=== PATIENT | female | born 1970 | race Caucasian/White ===

== ENCOUNTER 2016-06-08 07:17 | Outpatient (CLI) | payer OTHER | END 2016-06-08 07:18 | disposition home or self-care (01) | DX: D50.9 Iron deficiency anemia, unspecified (principal); Z79.899 Other long term (current) drug therapy ==

== ENCOUNTER 2017-03-20 07:20 | Outpatient (CLI) | payer OTHER ==
[2017-03-20 12:13] LABS: BASOPHILS % (AUTO) 0.5 %; EOSINOPHILS # (AUTO) 0.2 10^3/uL (0.0-0.7); EOSINOPHILS % (AUTO) 3.2 %; HGB - HEMOGLOBIN 12.7 g/dL (12.0-16.0); LYMPHOCYTES # (AUTO) 1.5 10^3/uL (1.5-3.5); LYMPHOCYTES % (AUTO) 22.8 %; MEAN CORPUSCULAR HEMOGLOBIN 29.4 pg (27.0-31.0); MEAN CORPUSCULAR HGB CONC 33.6 g/dL (32.0-36.0); MEAN CORPUSCULAR VOLUME 87.6 fL (81.0-99.0); MEAN PLATELET VOLUME 9.6 fL (7.9-10.8); MONOCYTES # (AUTO) 0.5 10^3/uL (0.0-1.0); MONOCYTES % (AUTO) 7.5 %; NEUTROPHILS # (AUTO) 4.3 10^3/uL (1.5-6.6); PLT - PLATELET COUNT 246 10^3/uL (130-450); RED BLOOD COUNT 4.32 10^6/uL (4.20-5.40); RED CELL DISTRIBUTION WIDTH 13.3 % (12.0-15.0); WHITE BLOOD COUNT 6.4 x10^3/uL (4.8-10.8)
[2017-03-20 12:40] LABS: THYROID STIMULATING HORMONE 1.96 uIU/mL (0.34-5.60)
[2017-03-20 12:42] LABS: % IRON SATURATION 19 % (20-50); ALBUMIN 3.8 g/dL (3.2-5.5); ALBUMIN/GLOBULIN RATIO 1.1 (1.0-2.2); ALKALINE PHOSPHATASE 86 IU/L (42-121); ALT ALANINE AMINOTRANSFERASE 12 IU/L (10-60); AST ASPARTATE AMINOTRANSFERASE 15 IU/L (10-42); BILIRUBIN,TOTAL 0.4 mg/dL (0.2-1.0); BUN - BLOOD UREA NITROGEN 15 mg/dL (6-20); CALCIUM 9.1 mg/dL (8.5-10.3); CARBON DIOXIDE - CO2 28 mmol/L (21-32); CHLORIDE 105 mmol/L (101-111); CHOL/HDL RATIO 3.1 (<4.4); CHOLESTEROL 164 mg/dL; CREATININE 0.6 mg/dL (0.4-1.0); GFR - MDRD 107 (>89); GLUCOSE 92 mg/dL (70-100); HDL CHOLESTEROL 53 mg/dL; IRON 68 ug/dL (28-170); LDL CHOLESTEROL,CALCULATED 91 mg/dL; LDL/HDL RATIO 1.7 (<4.4); SODIUM 138 mmol/L (135-145); TOTAL IRON BINDING CAPACITY 351 ug/dL (250-450); TOTAL PROTEIN 7.2 g/dL (6.7-8.2); TRANSFERRIN 251 mg/dL (192-382); VLDL CHOLESTEROL 20 mg/dL
[2017-03-20 12:44] LABS: FERRITIN 10.7 ng/mL (11.0-306.8)
== END 2017-03-20 07:21 | disposition home or self-care (01) ==
LOC: LAB.F 07:20
PROVIDERS: ATTEND Physician Assistant Medical
DX: Z00.00 Encounter for general adult medical examination without abnormal findings (principal); Z13.89 Encounter for screening for other disorder; E55.9 Vitamin D deficiency, unspecified; D50.9 Iron deficiency anemia, unspecified; Z51.81 Encounter for therapeutic drug level monitoring; Z79.899 Other long term (current) drug therapy
CPT/HCPCS: 36415; 80053; 80061; 82306; 82728; 83540; 83721; 84443; 84466; 85025

== ENCOUNTER 2018-04-20 15:14 | Outpatient (CLI) | payer OTHER ==
[2018-04-20 18:20] LABS: BASOPHILS % (AUTO) 0.4 %; EOSINOPHILS # (AUTO) 0.2 10^3/uL (0.0-0.7); EOSINOPHILS % (AUTO) 3.8 %; HGB - HEMOGLOBIN 13.9 g/dL (12.0-16.0); LYMPHOCYTES # (AUTO) 1.4 10^3/uL (1.5-3.5); LYMPHOCYTES % (AUTO) 27.6 %; MEAN CORPUSCULAR HEMOGLOBIN 29.2 pg (27.0-31.0); MEAN CORPUSCULAR HGB CONC 32.7 g/dL (32.0-36.0); MEAN CORPUSCULAR VOLUME 89.2 fL (81.0-99.0); MONOCYTES # (AUTO) 0.4 10^3/uL (0.0-1.0); MONOCYTES % (AUTO) 7.9 %; NEUTROPHILS # (AUTO) 3.1 10^3/uL (1.5-6.6); NEUTROPHILS % (AUTO) 60.3 %; PLT - PLATELET COUNT 247 10^3/uL (130-450); RED BLOOD COUNT 4.76 10^6/uL (4.20-5.40); RED CELL DISTRIBUTION WIDTH 13.6 % (12.0-15.0); WHITE BLOOD COUNT 5.2 x10^3/uL (4.8-10.8)
[2018-04-20 18:48] LABS: ALBUMIN 3.8 g/dL (3.2-5.5); BILIRUBIN,TOTAL 0.6 mg/dL (0.2-1.0); CREATININE 0.7 mg/dL (0.4-1.0); TOTAL PROTEIN 7.7 g/dL (6.7-8.2)
== END 2018-04-20 15:15 | disposition home or self-care (01) ==
LOC: LAB.F 15:14
PROVIDERS: ATTEND Physician Assistant Medical
DX: Z51.81 Encounter for therapeutic drug level monitoring (principal)
CPT/HCPCS: 36415; 80053; 85025

== ENCOUNTER 2018-06-04 15:31 | Outpatient (CLI) | payer OTHER ==
[2018-06-04 17:40] LABS: ALBUMIN 3.8 g/dL (3.2-5.5); BILIRUBIN,TOTAL 0.5 mg/dL (0.2-1.0); CREATININE 0.6 mg/dL (0.4-1.0); TOTAL PROTEIN 7.7 g/dL (6.7-8.2)
== END 2018-06-04 15:32 | disposition home or self-care (01) ==
LOC: LAB.F 15:31
PROVIDERS: ATTEND Physician Assistant Medical
DX: E87.6 Hypokalemia (principal)
CPT/HCPCS: 36415; 80053

== ENCOUNTER 2018-06-06 08:02 | Outpatient (CLI) | payer OTHER ==
[2018-06-06 18:15] LABS: MAGNESIUM 2.1 mg/dL (1.7-2.8); PHOSPHORUS 2.7 mg/dL (2.5-4.6)
[2018-06-06 18:31] LABS: THYROID STIMULATING HORMONE 1.46 uIU/mL (0.34-5.60)
[2018-06-06 18:37] LABS: FERRITIN 7.9 ng/mL (11.0-306.8)
== END 2018-06-06 08:03 | disposition home or self-care (01) ==
LOC: LAB.F 08:02
PROVIDERS: ATTEND Physician Assistant Medical
DX: I49.3 Ventricular premature depolarization (principal); D50.9 Iron deficiency anemia, unspecified
CPT/HCPCS: 36415; 82728; 83735; 84100; 84443

== ENCOUNTER 2018-07-02 16:01 | Outpatient (CLI) | payer OTHER ==
--- NOTE | 2018-07-03 10:27 | Mammography Report ---
Reason: SCREENING MAMMO Procedure Date: 07/02/2018 Accession Number: [id number] / [id number] Procedure: [facility] - Screening Mammo w/Jc CPT Code: FULL RESULT: EXAM: Screening Mammo w/Jc DATE: 07/02/2018 5:01 PM CLINICAL HISTORY: Screening examination. TECHNIQUE: (B) - Bilateral CC, laterally exaggerated CC, MLO views were obtained. COMPARISON: 03/17/2008 and 03/05/2008. PARENCHYMAL PATTERN: (D) - The breast(s) demonstrate(s) heterogeneously dense fibroglandular parenchyma. FINDINGS: Compared to 2008, breast density has decreased and innumerable bilateral nodules and masses are now seen which are predominantly hypodense and well-circumscribed, without associated calcifications. While both the interval evolution and appearance are compatible with a polycystic pattern, this requires additional imaging for clarification, bilateral diagnostic breast ultrasound. Separately, in the right breast is a dominant isodense gently lobulated well-circumscribed 4.0 x 3.2 cm mass best seen on MLO image 43 and CC image 37, additional spot mammographic evaluation as well as ultrasound evaluation. And in the left breast best seen on CC image 26 medial lower breast and on the left breast MLO image on image 54 is a 1.2 cm hyperdense well-circumscribed nodule questionably with calcifications, additional spot magnified mammographic evaluation as well as ultrasound evaluation. IMPRESSION: Incomplete examination. BI-RADS category 0. RECOMMENDATION: (ADDMU) - Additional views using both Mammography and Ultrasound recommended. Bilateral diagnostic breast ultrasound. Bilateral diagnostic mammogram. BI-RADS CATEGORY: (0) - Incomplete Examination - need additional evaluation. STANDARD QUALIFYING STATEMENTS: 1. This examination was not reviewed with the aid of Computer-Aided Detection (CAD). 2. A negative or benign imaging report should not preclude biopsy if clinically suspicious findings are present. 3. Dense breasts may obscure an underlying neoplasm. 4. This examination was reviewed with the aid of 3D breast imaging (tomosynthesis).
== END 2018-07-02 16:02 | disposition home or self-care (01) ==
LOC: DI 16:01
DX: Z12.31 Encounter for screening mammogram for malignant neoplasm of breast (principal); R92.8 Other abnormal and inconclusive findings on diagnostic imaging of breast
CPT/HCPCS: 77063; 77067

== ENCOUNTER 2018-07-11 09:05 | Outpatient (CLI) | payer OTHER ==
--- NOTE | 2018-07-11 16:03 | Mammography Report ---
Reason: ABNORMAL MAMMOGRAM Procedure Date: 07/11/2018 Accession Number: [id number] / [id number] Procedure: [facility] - Diag Special Views Dig Bilat CPT Code: FULL RESULT: EXAM: Diag Special Views Dig Bilat, Breast Unilateral Limited, Breast Unilateral Limited DATE: 07/11/2018 9:28 AM CLINICAL HISTORY: Recall from screening exam for bilateral oval masses favoring cysts with possible associated calcification. No reported personal or family history of breast cancer. TECHNIQUE: (B) - Bilateral 90 degree lateral views. Coned magnified bilateral CC and MLO views for calcifications. Real-time ultrasound was performed of both breasts. COMPARISON: Baseline screening exam of 07/02/2018. PARENCHYMAL PATTERN: (D) - The breasts demonstrate heterogeneously dense fibroglandular parenchyma bilaterally. FINDINGS: Bilateral breasts: There are multiple bilateral round and oval, circumscribed margin, benign appearing masses. Findings recalled from screening correspond to dominant 3.5 cm oval mass on the right 12:00 breast and an 11 mm mass in the 3:00 left breast middle depth. Scattered milk of calcium calcifications are noted bilaterally corresponding to additional finding recalled from screening. There are no suspicious masses, calcifications, or areas of distortion. Right breast ultrasound: Targeted ultrasound was performed with high-resolution linear transducer. In the 12:00 retroareolar breast, there is a 3.5 cm anechoic simple cyst corresponding to dominant finding recalled from screening. Wide area is scanned; multiple additional simple cysts are noted in the parenchyma consistent with other mammographic findings. Left breast ultrasound: Targeted ultrasound was performed with a high-resolution linear transducer. In the 3:00 breast 4 cm from the nipple, there is an 11 mm anechoic simple cyst corresponding to specific finding recalled from screening. Wide area is scanned; multiple additional simple cysts are noted in the parenchyma consistent with other mammographic findings. IMPRESSION: Bilateral breasts: Benign bilateral imaging findings, including findings recalled from recent screening exam as described. Benign. BI-RADS Category 2. Recommend annual screening mammography. RECOMMENDATION: (ANNUAL) - Recommend routine annual screening mammography. BI-RADS CATEGORY: (2) - Benign Findings. STANDARD QUALIFYING STATEMENTS: 1. This examination was not reviewed with the aid of Computer-Aided Detection (CAD). 2. A negative or benign imaging report should not preclude biopsy if clinically suspicious findings are present. 3. Dense breasts may obscure an underlying neoplasm. 4. This examination was reviewed with the aid of 3D breast imaging (tomosynthesis).
== END 2018-07-11 09:06 | disposition home or self-care (01) ==
LOC: DI 09:05
PROVIDERS: ATTEND Physician Assistant Medical
DX: R92.8 Other abnormal and inconclusive findings on diagnostic imaging of breast (principal); N60.02 Solitary cyst of left breast; N60.01 Solitary cyst of right breast
CPT/HCPCS: 76642; 77066

== ENCOUNTER 2018-12-06 16:15 | Outpatient (CLI) | payer OTHER ==
--- NOTE | 2018-12-09 00:24 | XRAY Report ---
Reason: RT HEEL PAIN Procedure Date: 12/06/2018 Accession Number: [id number] / [id number] Procedure: XR - Foot 3 View RT CPT Code: FULL RESULT: EXAM: RIGHT FOOT RADIOGRAPHY EXAM DATE: 12/06/2018 04:30 PM. CLINICAL HISTORY: Right heel and foot pain for 1 year, worsening with weightbearing. COMPARISON: None. TECHNIQUE: 3 views. FINDINGS: Bones: Tiny plantar calcaneal spur. No acute displaced fractures or suspicious bony lesion. Joints: No dislocation. Soft Tissues: No significant soft tissue swelling. IMPRESSION: No acute osseous abnormality demonstrated. RADIA
--- NOTE | 2018-12-10 09:23 | Ultrasound Report ---
Reason: UTERINE MASS, ABD MENSTRUAL BLEEDING Procedure Date: 12/06/2018 Accession Number: [id number] / [id number] Procedure: US - Pelvic w/Transvaginal CPT Code: FULL RESULT: EXAM: PELVIC ULTRASOUND EXAM DATE: 12/06/2018 04:38 PM. CLINICAL HISTORY: Uterine mass, abnormal menstrual bleeding. COMPARISON: None. TECHNIQUE: Realtime transabdominal pelvic scan performed to identify the uterus and adnexa and as an overview of other pelvic structures, followed by transvaginal scan to provide greater detail of the uterus and adnexa, with static image documentation. FINDINGS: Uterus: 9.6 x 8.2 x 7.7 cm, volume 314 cc. Anteverted position. Enlarged uterus with uterine fibroids and heterogeneous parenchyma. Masses: 7 x 5.5 x 6.7 cm transmural anterior right fundal fibroid. Mild internal vascularity present. Endometrium: 16 mm. Thickened and heterogeneous. No focal mass or abnormal vascularity. Cervix: No mass. Multiple nabothian cysts are noted. Right Ovary: 2.9 x 3.2 x 2.9 cm, volume 14 cc. Normal echotexture and blood flow. 1.6 x 1.6 x 1.7 cm anechoic right ovarian cyst. Left Ovary: Not definitely seen. No obvious left adnexal mass lesion. Possible left ovary measuring 2 x 1.6 cm is noted. No obvious left ovarian mass. Free Fluid: None. Other: None. IMPRESSION: 1. Large 7 cm transmural right fundal fibroid. 2. Thickened heterogeneous endometrium with no focal mass lesion or abnormal blood flow. Findings may represent hyperplasia. If symptoms persist, recommend endometrial sampling. 3. 1.7 cm anechoic right ovarian cyst. Otherwise, normal right ovary and adnexa. 4. Left ovary not definitely seen. No left adnexal mass lesion. RADIA
== END 2018-12-06 16:16 | disposition home or self-care (01) ==
LOC: DI 16:15
PROVIDERS: ATTEND Physician Assistant Medical
DX: M79.671 Pain in right foot (principal); D25.9 Leiomyoma of uterus, unspecified; R93.89 Abnormal findings on diagnostic imaging of other specified body structures; N83.201 Unspecified ovarian cyst, right side
CPT/HCPCS: 76830; 76856

== ENCOUNTER 2019-02-06 08:27 | Day surgery (SDC) | payer OTHER ==
--- NOTE | 2019-02-05 11:50 | HISTORY & PHYSICAL EXAMINATION ---
HPI - History of Present Illness HPI Comment/Other: CC: Procedure HPI: patient is here to see Dr Birch for Colposcopy ...................................................................Halina Amanuel DozierHARLEEN January 31, 2019 1:48 PM Patient is a 48yo here colposcopy and preop assessment for hysteroscopy D&C/polpyectomy/myomectomy. Patient was last seen in clinic on 01/10/19 Pap smear in May 2018 that returned with normal cytology but was positive for high-risk HPV. It was negative for HPV 16 and 18. She had a repeat Pap smear in November 2018 that returned with ASC US, high-risk HPV positive. It was again negative for subtype 16 and 18. Here for colposcopic evaluation. She also notes that her periods have become heavy. For this reason she underwent a pelvic exam and was perceived to have had a mass on exam. She underwent a pelvic ultrasound which showed a 7 cm anterior trans mural fibroid and a 16mm endometrial stripe that was heterogeneous. She is missed to menses. She usually has a monthly flow. She is increased hot flashes. She reports that she is miserable. She is sexually active with male partner of 31 years. No dyspareunia. She's lost interest in intercourse. Decreased libido. Responsive but not interested in initiating intercourse. She reports that she has had multiple abnormal Pap smears. She had one colposcopy at age 17. That is the only colposcopy that she recalls. No sexually transmitted infections. No post coital or intermenstrual bleeding. While she has been monogamous with her partner for 31 years, she reports multiple sexual partners prior to that relationship. Pelvic us showed a 16 mm endoemtrial stripe. Thickened endometrium in the setting of oligomenorrhea with subsequent DUB requires sampling Reviewed risks/benefits of EMB vs hysteroscopy D&C Wants to proceed with hysteroscopy D&C No change in health hx since time of prior exam Allergies: * ASPIRIN (Critical) * PENICILLAN (Critical) * SULFA (Critical) * BREAD (Mild) Medications: FLUOXETINE HCL 10 MG ORAL TABLET (FLUOXETINE HCL) Take 2 tablets by mouth once daily before bed; Route: ORAL RIZATRIPTAN BENZOATE 10 MG TABS (RIZATRIPTAN BENZOATE) Take one tab by mouth as needed for maigraines, can take up to 2 in 24 hours SUPER B-100 ORAL TABLET (B TNDHGNO-ZNEAEP-YL) Take one tab by mouth daily; Route: ORAL VITAMIN D3 5000 UNIT ORAL CAPSULE (CHOLECALCIFEROL) Take one cap by mouth daily, increase to two daily during winter months; Route: ORAL IRON 90 (18 FE) MG ORAL TABLET (FERROUS SULFATE) Take one tab by mouth daily; Route: ORAL MULTIVITAMIN GUMMIES ADULT ORAL TABLET CHEWABLE (MULTIPLE VITAMINS-MINERALS) Take two gummies by mouth daily; Route: ORAL Problems: Preop exam (ICD-V72.84) (DKF66-X97.818) Cervical dysplasia (ICD-622.10) (AOD21-N76.9) DUB (ICD-626.8) (IVG14-H70.8) Thickened endometrium (ICD-793.5) (RFM09-V44.00) Cervical dysplasia (ICD-622.10) (XIW05-X83.9) Depression (PQA98-J86.8) Anxiety (ICD-300.00) (LCO54-S29.9) Anemia (ICD-285.9) (OYZ28-C13.9) Other abnormal Papanicolaou smear of cervix and cervical HPV (ICD-795.09) (JXU12-E62.618) Heel pain, right (ICD-729.5) (AQA06-O15.671) Uterine mass (ICD-625.8) (PZC80-K62.89) Menstrual bleeding, abnormal (ICD-626.9) (PNU80-R09.9) Abnormal cervical Pap (ICD-795.00) (OKK06-F37.619) Cough (ICD-786.2) (YRW88-Q36) Frequent premature ventricular beats (ICD-427.69) (LUT11-D48.3) Weight gain (ICD-783.1) (PLM42-F66.5) Anxiety/depression (ICD-300.4) (VJB94-N27.8) Screening mammogram NEC (ICD-V76.12) (WQH83-I25.31) Premenstrual dyphoric syndrome (ICD-625.4) (OEQ73-N01.3) Anemia, iron deficiency (ICD-280.9) (EJV70-G71.9) Preventive health care (ICD-V70.0) (BGQ17-X97.00) INSOMNIA (ICD-780.52) (JPU15-Z16.00) MIGRAINE, COMMON (ICD-346.10) (TKT86-L59.009) Vital Signs: Patient Profile: 48 Years Old Female Height: 63.5 inches Weight: 175.2 pounds BMI: 30.66 Pt. in pain? 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 Physical Constitutional: alert, no acute distress, well hydrated, well developed, well nourished. Skin: normal turgor, normal color. Head: atraumatic, normocephalic. Cardiovascular: RRR. Respiratory: no respiratory distress, clear to auscultation. Abdomen: nondistended, nontender, no guarding. Extremities: no deformities. Neurologic: normal. Psych: affect and mood appropriate, normal interaction, good eye contact. Vulva: normal appearance, no lesions or masses. Urethra: normal. Bladder: normal. Vagina: normal, rugated, physiologic discharge, no lesions. Cervix: normal, no motion tenderness, no lesions. see colpopscopy note Colposcopy This is a 48 Years Old woman who presents for colposcopy. LMP: 12/30/2018 Other History Pap Smear: no abnormal cells but the HPV test was positive for the non high risk cancer causing HPV strains (06/06/2018 9:52:45 AM) Previous abnormal paps: yes test: neg Other PMH: Migraines SAD Low BP osteoarthritis thoracic spine congenital cataract OD Anemia Anxiety Depression Indications for colposcopy: ASC-US Symptoms: none Colposcopic Examination Vulva and Surrounding Areas Findings: normal appearance, normal hair distribution, no lesions or masses Vagina Findings: no abnormalities, atrophic change Cervix Squamocolumnar Junction: partially visualized Vaginal Fornices: normal, no motion tenderness and no lesions. see colpopscopy note Comments: Reviewed risks/benefits/alternatives/indications. Informed consent obtained. Cervix easily visualized. Cervix & vaginal ramirez painted w/ acetic acid. Green light filter obtained. Thin AWE observed. ECC & cervical bx from ^ and 11:00 obtained. Monsels solution applied to achieve hemostasis. Col poscopic impression: moderate dysplaisa. Patient tolerated well. Cervical Findings Endocervical curretage done and specimen sent to lab. from 6 o'clock to 6 o'clock. It lies outside the SQJ. The colposcopic abnormalities of this lesion appear minor. The lesion was biopsied and specimen was sent to lab. The full extent of this lesion was seen. The second lesion consists of acetowhite epithelium from 11 o'clock to 11 o'clock. The colposcopic abnormalities of this lesion appear minor. The lesion was biopsied and specimen was sent to lab. Assessment Colposcopic Assessment: High grade DASH (moderate dysplasia) Problems added: Preop exam (ICD-V72.84) (XKQ11-L39.818) Cervical dysplasia (ICD-622.10) (YFZ64-B09.9) Plan Instructions given: pelvic rest, patient told to expect some bleeding and/or discharge, to discuss results by phone, to return to discuss results, loop excision discussed Orders added: COLPOSCOPY OF THE CERVIX INCLUDING UPPER/ADJACENT VAGINA W/BIOPSY(S) OF THE CERVIX AND ENDOCERVICAL CURETTAGE [CPT-78011] TISSUE EXAM BY PATHOLOGIST, Level IV [CPT-28557] PRE OP -10599 [CPT-60007] Impression & Recommendations: Problem # 1: Cervical dysplasia (ICD-622.10) (PIK72-Z30.9) Orders: COLPOSCOPY OF THE CERVIX INCLUDING UPPER/ADJACENT VAGINA W/BIOPSY(S) OF THE CERVIX AND ENDOCERVICAL CURETTAGE (CPT-23826) TISSUE EXAM BY PATHOLOGIST, Level IV (CPT-30622) Colposcopy performed as per procedure note For WILMA-2/3, will proceed with LEEP For WILMA-1, pap and HPV in 12 months FU pending pathology Problem # 2: Preop exam (ICD-V72.84) (SMN20-X80.818) Preop assessment Risk, benefits, alternatives to procedure discussed. Risks include, but are not limited to, bleeding, infection, damage to nearby tissue and organ including uterine perforation. Consent for hysteroscopy, D&C, polypectomy and transfusion as indicated obtained ETA: Colposcp[y returned with WILMA-2. Patient informed and wants to proceed with LEEP intraop. Added to surgery schedule. 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: Tubal ligation Meds/Allgy - Home Medications Home Medications: Ambulatory Orders Medication Instructions Recorded Confirmed Cholecalciferol [Vitamin D3] 5,000 unit PO DAILY 01/18/19 01/18/19 Ferrous Sulfate [High Potency Iron] 90 mg PO DAILY 01/18/19 01/18/19 Fluoxetine HCl 20 mg PO QPM 01/18/19 01/18/19 Mirtazapine 7.5 mg PO QPM PRN 01/18/19 01/18/19 Multivitamin [Multiple Vitamins] 1 each PO DAILY 01/18/19 01/18/19 Rizatriptan Benzoate [Maxalt E Learning Developer] 10 mg PO ONCE PRN MDD 2 01/18/19 01/18/19 Vitamin B Complex/Folic Acid 1 tab PO DAILY 01/18/19 01/18/19 [Super B Maxi Complex Caplet] - Allergies Allergies/Adverse Reactions: Allergies Allergy/AdvReac Type Severity Reaction Status Date / Time aspirin Allergy Respiratory Verified 01/18/19 11:47 Penicillins Allergy Anaphylaxis Verified 01/18/19 11:47 Sulfa (Sulfonamide Allergy Anaphylaxis Verified 01/18/19 11:47 Antibiotics)
[2019-02-06] MEDS ORDERED: PROPOFOL 200 MG/20 ML VIAL IVP ONE (08:28)
[2019-02-06] MEDS ORDERED: MIDAZOLAM 2 MG/2 ML VIAL IVP ONE (08:28)
[2019-02-06] MEDS ORDERED: fentaNYL 100 MCG/2 ML VIAL IVP ONE (08:28)
[2019-02-06] MEDS ORDERED: ePHEDrine 50 MG/ML VIAL IVP ONE (08:28)
[2019-02-06] MEDS ORDERED: ONDANSETRON 4 MG/2 ML VIAL IVP ONE (08:28)
[2019-02-06] MEDS ORDERED: KETOROLAC 30 MG/ML VIAL IVP ONE (08:28)
[2019-02-06] MEDS ORDERED: LACTATED RINGERS 1,000 ML IV ONE ×2 (09:37→12:06)
[2019-02-06 09:56] LABS: BASOPHILS % (AUTO) 0.4 %; EOSINOPHILS # (AUTO) 0.2 10^3/uL (0.0-0.7); EOSINOPHILS % (AUTO) 3.6 %; HGB - HEMOGLOBIN 14.4 g/dL (12.0-16.0); LYMPHOCYTES # (AUTO) 1.4 10^3/uL (1.5-3.5); LYMPHOCYTES % (AUTO) 30.1 %; MEAN CORPUSCULAR HEMOGLOBIN 29.9 pg (27.0-31.0); MEAN CORPUSCULAR VOLUME 93.6 fL (81.0-99.0); MONOCYTES # (AUTO) 0.4 10^3/uL (0.0-1.0); MONOCYTES % (AUTO) 8.1 %; NEUTROPHILS # (AUTO) 2.7 10^3/uL (1.5-6.6); NEUTROPHILS % (AUTO) 57.6 %; PLT - PLATELET COUNT 245 10^3/uL (130-450); RED BLOOD COUNT 4.81 10^6/uL (4.20-5.40); RED CELL DISTRIBUTION WIDTH 12.9 % (12.0-15.0); WHITE BLOOD COUNT 4.7 x10^3/uL (4.8-10.8)
[2019-02-06 10:01] LABS: HCG UR QUAL NEGATIVE
--- NOTE | 2019-02-06 10:53 | ANESTHESIA ---
Pre-Anesthesia VS, & Labs - Diagnosis Thickened endometrium - Procedure hysterscopy, d&C, possible polypectomy/myomectomy Vital Signs: Temp Pulse Resp BP Pulse Ox 36.5 C 69 16 133/88 H 96 02/06/19 09:38 02/06/19 09:38 12 09:38 12 09:38 02/06/19 09:38 Height 5 ft 4 in Weight (kg) 78.2 kg - NPO >8 hours - Is Patient ?: No - Lab Results Current Lab Results: Laboratory Tests 02/06/19 09:35: WBC 4.7 L, RBC 4.81, Hgb 14.4, Hct 45.0, MCV 93.6, MCH 29.9, MCHC 32.0, RDW 12.9, Plt Count 245, MPV 11.0 H, Neut # (Auto) 2.7, Lymph # (Auto) 1.4 L, Knott # (Auto) 0.4, Eos # (Auto) 0.2, Baso # (Auto) 0.0, Absolute Nucleated RBC 0.00, Nucleated RBC % 0.0 Fish Bones: 02/06/19 09:35 Home Medications and Allergies Home Medications: Ambulatory Orders Cholecalciferol [Vitamin D3] 5,000 unit PO DAILY 01/18/19 Ferrous Sulfate [High Potency Iron] 90 mg PO DAILY 01/18/19 Fluoxetine HCl 20 mg PO QPM 01/18/19 Mirtazapine 7.5 mg PO QPM PRN 01/18/19 Multivitamin [Multiple Vitamins] 1 each PO DAILY 01/18/19 Rizatriptan Benzoate [Maxalt [place]] 10 mg PO ONCE PRN MDD 2 01/18/19 Vitamin B Complex/Folic Acid [Super B Maxi Complex Caplet] 1 tab PO DAILY 01/18/19 Cholecalciferol [Vitamin D3] 5,000 unit PO DAILY 01/18/19 Ferrous Sulfate [High Potency Iron] 90 mg PO DAILY 01/18/19 Fluoxetine HCl 20 mg PO QPM 01/18/19 Mirtazapine 7.5 mg PO QPM PRN 01/18/19 Multivitamin [Multiple Vitamins] 1 each PO DAILY 01/18/19 Rizatriptan Benzoate [Maxalt [place]] 10 mg PO ONCE PRN MDD 2 01/18/19 Vitamin B Complex/Folic Acid [Super B Maxi Complex Caplet] 1 tab PO DAILY 01/18/19 Allergies/Adverse Reactions: Allergies Allergy/AdvReac Type Severity Reaction Status Date / Time aspirin Allergy Respiratory Verified 01/18/19 11:47 Penicillins Allergy Anaphylaxis Verified 01/18/19 11:47 Sulfa (Sulfonamide Allergy Anaphylaxis Verified 01/18/19 11:47 Antibiotics) Anes History & Medical History - Anesthetic History Family history of Anesthesia Complications: Denies Family history of Malignant Hyperthermia: Denies - Medical History Cardiovascular: reports: None Pulmonary: reports: None Gastrointestinal: reports: None Urinary: reports: None Neuro: reports: Migraines Musculoskeletal: reports: Chronic back pain Endocrine/Autoimmune: reports: None Blood Disorders: reports: None Skin: reports: None Smoking Status: Never smoker Psychosocial: reports: Depression - Surgical History Gynecologic: Tubal ligation Exam General: Alert, Oriented x3, Cooperative, No acute distress Dental: WNL Mouth Openin Fingerbreadth Neck Mobility: Normal Mallampati classification: II Thyromental Distance: greater than 6 cm Respiratory: Lungs clear, Normal breath sounds, No respiratory distress, No accessory muscle use Cardiovascular: Regular rate, Normal S1, Normal S2, No murmurs Mental/Cognitive Status: Alert/Oriented X3, Normal for patient Plan Anesthesia Type: General Consent for Procedure(s) Verified and Reviewed: Yes Code Status: Attempt Resuscitation ASA classification: 2-Mild systemic disease Is this case an emergency?: No
[2019-02-06] MEDS ORDERED: LIDOCAINE 1%-EPI 1:100000 20 ML MDV ONE (11:18)
[2019-02-06] MEDS ORDERED: LIDOCAINE 1%-EPI 1:100000 30 ML MDV SUBQ ONE (13:00)
[2019-02-06] MEDS ORDERED: FERRIC SUBSULFATE 8 ML SOLUTION (FOR OR) TOP ONE (13:00)
--- NOTE | 2019-02-06 13:37 | OPERATIVE REPORT ---
Operative Report - General Procedure Date: 02/06/19 Planned Procedure: Loop electrical excision procedure. Hysteroscopy D&C Pre-Op Diagnosis: Thickened endometrium. WILMA-2 Procedure Performed: LEEP Hysteroscopy D&C Post Op Diagnosis: Same - Procedure Note Primary Surgeon: Rhonda Birch MD Anesthesia Provider: Loly Rodriguez CRNA Anesthesia Technique: General LMA Pathology: 1) Ectocervix in 2 pieces, smooth outer layer and deeper layer in second sample 2) Endocervical superficial 3) Endocervical deep 4) curettage 5) Endometrial curettings IV Fluids (mL): 500 Estimated Blood Loss (mL): 10 Urine Output (mL): 60 Indications: Thickened endometrium in setting of dysfunctional uterine bleeding WILMA-2 on cervical biopsy Findings: Uterine cavity without polyps or fibroids. Thick endometrium. Bilateral tubal ostia noted Complications: none - Other Other Information/Narrative: Risks benefits and alternatives to the procedure were reviewed. Consent was again confirmed. Patient was taken to the operating room where she underwent general anesthesia. She was positioned in dorsolithotomy position with legs resting in yellowfin stirrups. She was prepped and draped in the usual sterile fashion. Preoperative antibiotics were not indicated. Preoperative checklist was performed. Exam under anesthesia was performed. Darrius coated speculum was placed in the vagina and the cervix was visualized. Topical iodine applied. Paracervical block was administered using a total of 20 cc of 1% lidocaine with epinephrine was injected at the 4:00 and 8:00 positions lateral to the portio of the cervix. LEEP generator was set to 30 pryor blend and a 20x15 loop was used to excise the ectocervix in two parts. A 15x15 loop was then used to excise the endocervical smaple in 2 parts. Endocervical curettage performed. Ball electrode set at 60 pryor blend was used to cauterize the cervical bed, obtained 2 mm margins of cauterized tissue around the edge of the LEEP bed. Good hemostasis was noted. A single toothed tenaculum was placed on the anterior cervical lip. The cervical os was then serially dilated with Hegar dilators to accommodate the caliber of the diagnostic hysteroscope. Uterus sounded to 9 cm. The hysteroscope was inserted and findings were noted as above. Hysteroscope was removed and sharp curettage was performed. Hysteroscope was reinserted to confirm adequate curettage of the uterine cavity. Uterine cavity was smooth at close of the procedure. Hysteroscope and tenaculum were removed. Monsels solution was applied to the cervical LEEP bed. Good hemostasis was noted. All instruments were removed from the vagina. Procedure was well tolerated and without complication. Fluid deficit: 160 cc NS
[2019-02-06] MEDS ORDERED: oxyCODONE 5 MG TABLET ONE (13:54)
[2019-02-06 14:28] VITALS: BP 126/52
== END 2019-02-06 08:28 | disposition home or self-care (01) ==
LOC: SDS 08:27
PROVIDERS: ATTEND Obstetrics & Gynecology
PROC: 0UJD8ZZ Inspection of Uterus and Cervix, Via Natural or Artificial Opening Endoscopic (ICD-10-PCS; 2019-02-06)
PROC: 0UBC7ZX Excision of Cervix, Via Natural or Artificial Opening, Diagnostic (ICD-10-PCS; principal; 2019-02-06 11:45)
PROC: 0UDB7ZX Extraction of Endometrium, Via Natural or Artificial Opening, Diagnostic (ICD-10-PCS; 2019-02-06 11:45)
DX: N85.00 Endometrial hyperplasia, unspecified (principal); D06.7 Carcinoma in situ of other parts of cervix
CPT/HCPCS: 57522; 58558; 81025; 85025; A9270; J7120

== ENCOUNTER 2019-06-07 15:39 | Outpatient (CLI) | payer OTHER ==
[2019-06-07 15:49] LABS: BASOPHILS % (AUTO) 0.5 %; EOSINOPHILS # (AUTO) 0.3 10^3/uL (0.0-0.7); EOSINOPHILS % (AUTO) 5.2 %; HGB - HEMOGLOBIN 13.9 g/dL (12.0-16.0); LYMPHOCYTES # (AUTO) 1.8 10^3/uL (1.5-3.5); LYMPHOCYTES % (AUTO) 31.8 %; MEAN CORPUSCULAR HGB CONC 32.1 g/dL (32.0-36.0); MEAN CORPUSCULAR VOLUME 93.5 fL (81.0-99.0); MEAN PLATELET VOLUME 10.6 fL (7.9-10.8); MONOCYTES # (AUTO) 0.5 10^3/uL (0.0-1.0); MONOCYTES % (AUTO) 8.7 %; NEUTROPHILS # (AUTO) 3.1 10^3/uL (1.5-6.6); NEUTROPHILS % (AUTO) 53.5 %; PLT - PLATELET COUNT 285 10^3/uL (130-450); RED BLOOD COUNT 4.63 10^6/uL (4.20-5.40); RED CELL DISTRIBUTION WIDTH 12.6 % (12.0-15.0); WHITE BLOOD COUNT 5.8 x10^3/uL (4.8-10.8)
[2019-06-07 16:12] LABS: BILIRUBIN,TOTAL 0.4 mg/dL (0.2-1.0); CALCIUM 9.6 mg/dL (8.5-10.3); CREATININE 0.7 mg/dL (0.4-1.0); TOTAL PROTEIN 7.9 g/dL (6.7-8.2)
[2019-06-07 17:15] LABS: FOLLICLE STIMULATING HORMONE 88.48 mIU/mL
[2019-06-07 17:16] LABS: LUTEINIZING HORMONE 61.5 mIU/mL
== END 2019-06-07 15:40 | disposition home or self-care (01) ==
LOC: LAB 15:39
PROVIDERS: ATTEND Physician Assistant Medical
DX: Z51.81 Encounter for therapeutic drug level monitoring (principal); Z79.899 Other long term (current) drug therapy; N95.1 Menopausal and female climacteric states; D64.9 Anemia, unspecified
CPT/HCPCS: 36415; 80053; 82670; 82728; 83001; 83002; 83540; 84466; 85025

== ENCOUNTER 2019-11-21 07:04 | Outpatient (CLI) | payer OTHER ==
[2019-11-21 15:35] LABS: BASOPHILS % (AUTO) 0.8 %; EOSINOPHILS # (AUTO) 0.3 10^3/uL (0.0-0.7); EOSINOPHILS % (AUTO) 5.2 %; HGB - HEMOGLOBIN 13.8 g/dL (12.0-16.0); LYMPHOCYTES # (AUTO) 1.5 10^3/uL (1.5-3.5); LYMPHOCYTES % (AUTO) 30.5 %; MEAN CORPUSCULAR HEMOGLOBIN 28.8 pg (27.0-31.0); MEAN CORPUSCULAR VOLUME 92.9 fL (81.0-99.0); MEAN PLATELET VOLUME 11.5 fL (7.9-10.8); MONOCYTES # (AUTO) 0.4 10^3/uL (0.0-1.0); MONOCYTES % (AUTO) 8.3 %; NEUTROPHILS # (AUTO) 2.7 10^3/uL (1.5-6.6); PLT - PLATELET COUNT 267 10^3/uL (130-450); RED BLOOD COUNT 4.79 10^6/uL (4.20-5.40); RED CELL DISTRIBUTION WIDTH 12.7 % (12.0-15.0); WHITE BLOOD COUNT 4.8 x10^3/uL (4.8-10.8)
[2019-11-21 16:00] LABS: ALBUMIN/GLOBULIN RATIO 1.3 (1.0-2.2); ALKALINE PHOSPHATASE 105 IU/L (42-121); ALT ALANINE AMINOTRANSFERASE 17 IU/L (10-60); AST ASPARTATE AMINOTRANSFERASE 19 IU/L (10-42); BILIRUBIN,TOTAL 0.5 mg/dL (0.2-1.0); BUN - BLOOD UREA NITROGEN 16 mg/dL (6-20); CALCIUM 9.5 mg/dL (8.5-10.3); CARBON DIOXIDE - CO2 28 mmol/L (21-32); CHLORIDE 102 mmol/L (101-111); CHOL/HDL RATIO 4.3 (<4.4); CHOLESTEROL 180 mg/dL; CREATININE 0.7 mg/dL (0.4-1.0); GLUCOSE 89 mg/dL (70-100); HDL CHOLESTEROL 42 mg/dL; LDL CHOLESTEROL,CALCULATED 120 mg/dL; LDL/HDL RATIO 2.9 (<4.4); SODIUM 139 mmol/L (135-145); TOTAL PROTEIN 7.2 g/dL (6.7-8.2); VLDL CHOLESTEROL 18 mg/dL
== END 2019-11-21 07:05 | disposition home or self-care (01) ==
LOC: LAB.S 07:04
PROVIDERS: ATTEND Registered Nurse
DX: D50.9 Iron deficiency anemia, unspecified (principal); F41.8 Other specified anxiety disorders; G47.00 Insomnia, unspecified; G43.009 Migraine without aura, not intractable, without status migrainosus
CPT/HCPCS: 36415; 80053; 80061; 83721; 84443; 85025

== ENCOUNTER 2019-12-03 08:00 | Outpatient (CLI) | payer OTHER | END 2019-12-03 23:59 | disposition home or self-care (01) | LOC: LAB.R 08:00 | PROVIDERS: ATTEND Registered Nurse | DX: Z12.11 Encounter for screening for malignant neoplasm of colon (principal) | CPT/HCPCS: 82274 ==

== ENCOUNTER 2020-01-06 17:50 | Outpatient (CLI) | payer OTHER ==
[2020-01-06 16:14] VITALS: BP 145/96
--- NOTE | 2020-01-06 16:34 | SLEEP CARE CONSULTATION ---
History of Present Illness Service Date and Time: 01/06/2020 1600 Reason for Visit: New patient Chief Complaint: reports: Insomnia, Unrefreshed sleep, Snoring, Fatigue. denies: Excessive daytime sleepiness, Observed pauses in breathing, Frequent awakenings at night Date of Onset: snoring w/ last 6 months, the rest = forever Usual bedtime: 9 PM Time it takes to fall asleep: 20 min-1 hour Snores at night: Yes Observed to quit breathing while asleep: No Sleeps alone due to snoring: No Number of times waking at night: 1-2 Reasons for waking at night: reports: Other (nightmares or something startling; feelings of anxiety). denies: Choking, Snoring, Gasping for air Toss, Turn, or Twitch while sleeping: Yes Recalls having dreams: Yes Usually gets out of bed at: 6 AM Feels refreshed in the morning: No Morning headache: Yes (1-2 times weekly; better in about an hour) Sleepy or fatigued during the day: Yes (sometimes) Ever fallen asleep while driving: No Takes day naps: Yes (once in a while; 1-2 times monthly) Dreams during day naps: Yes (50% of time) Prior sleep studies: No Additional HPI information: I had the pleasure of seeing RHEA HOGAN today regarding the possibility of her having a sleep disorder. Her current complaints are insomnia, snoring, unrefreshed sleep and fatigue. 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 She may have been snoring and did not know it. She has a history of an arrhythmia, depression, anxiety, attention deficit disorder and mood disorder. - Parasomnia Symptoms Ever been unable to move upon waking from sleep: No Walks in sleep: No Talks in sleep: No Ever acted out dreams in sleep: No Ever felt weak in the knees when startled or emotional: No Bothered by creepy, crawly, restless sensations in legs: No (pain right leg at night) Problems with memory or concentration: Yes (occasionally foggy headed) Subjective Initial [place] Sleepiness Scale score: 8 (in 2019) Past Medical History Past Medical History: reports: Claustrophobia, Arrythmia, Anemia, Anxiety, Depression, Attention deficit. 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 Patient is and lives in [place]. Have you smoked in the past 12 months: No Alcohol use: Yes Alcohol amount and frequency: rare, 1-2 month Caffeine use: Yes Caffeine amount and frequency: 1 16 ounce cup tea in mornings Family History Family history of sleep disordered breathing: Yes (daughter on CPAP) Family Hx Sleep Apnea: Mother: Snoring, Sleep apnea - Untreated Allergies and Home Medications Drug allergies reviewed: Yes (aspirin, penicillin, sulfa) Home medication list reviewed: Yes Allergy and home medication list: Vitamin D, B, C Iron Multivitamin Review of Systems Cardiovascular: reports: irregular heart rate or pulse. denies: high blood pressure, palpitations, chest pain, leg or foot swelling Respiratory: denies: shortness of breath Gastrointestinal: reports: difficulty swallowing. denies: heartburn Neurological: reports: headaches Psychiatric: reports: Attention Deficit Hyperactivity, anxiety, depression, claustrophobia Ear/Nose/Throat: reports: sinus problems (allergies). denies: nasal congestion, nose bleeds, dry mouth/throat, tonsillectomy Endocrine: reports: sluggishness, too hot or cold Musculoskeletal: reports: joint pain Immunologic: reports: sneezing, allergies to food or environment (dust, dander, goldenrod) Physical Exam Blood Pressure: 145/96 Cuff size: wrist Heart Rate: 66 O2 Saturation: 99 Height: 5 ft 4 in Weight: 184 lb Body Mass Index: 31.6 BMI Classification: Obese Neck circumference: 13.5 (inches) Nostrils: patent to airflow Turbinates: swollen Mouth and throat: narrow oropharynx Uvula visualization: 100% Mallampati Class I Tongue: normal in size Tonsils: 1+ Chin and jaw: normal size and position Neck: normal w/o lymphadenopathy or thyromegaly Heart: regular rate and rhythm Lungs: clear bilaterally Impression and Plan 1. Suspected Obstructive Sleep Apnea-Hypopnea Syndrome, as suggested by a history of loud and irregular snoring, morning headache, unrefreshed sleep, and cognitive impairment. I reviewed with patient that a narrow oropharynx and obesity are common predisposing factors for obstructive sleep apnea-hypopnea syndrome. I recommend proceeding to polysomnography to confirm the diagnosis and to assess severity. If the patient has significant sleep disordered breathing, a manual CPAP titration study will also be performed to find the optimal treatment pressure. I informed the patient of what the sleep studies involve and after some discussion, obtained agreement to proceed. The pathophysiology of obstructive sleep apnea-hypopnea syndrome was discussed with the patient and health risks of cardiovascular and cerebrovascular disease if not treated. AAS brochure for obstructive sleep apnea-hypopnea syndrome given and reviewed. 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 Patient agreed to plan. * Schedule polysomnography +- manual CPAP titration study and return in 1-2 weeks after the study to discuss result and initiate therapy. * Avoid long distance driving or driving when feeling sleepy. * Avoid alcohol, sedative and muscle relaxant around bedtime. * Attempt to lose weight. * Review instructions provided by trained office staff on how to prepare for the sleep study. * Return for follow-up after sleep study completed. Time Spent with Patient (minutes): 31
== END 2020-01-06 17:51 | disposition home or self-care (01) ==
LOC: SC 17:50
PROVIDERS: ATTEND Nurse Practitioner Family
DX: R06.83 Snoring (principal); R51.9 Headache, unspecified; G47.8 Other sleep disorders; R41.89 Other symptoms and signs involving cognitive functions and awareness; E66.9 Obesity, unspecified; Z68.31 Body mass index [BMI] 31.0-31.9, adult
CPT/HCPCS: 99203; 99212

== ENCOUNTER 2020-03-25 16:08 | Outpatient (CLI) | payer OTHER | END 2020-03-25 16:09 | disposition home or self-care (01) | LOC: SC 16:08 | PROVIDERS: ATTEND Nurse Practitioner Family | DX: G47.33 Obstructive sleep apnea (adult) (pediatric) (principal); R09.02 Hypoxemia; E66.3 Overweight; Z68.31 Body mass index [BMI] 31.0-31.9, adult | CPT/HCPCS: 95806 ==

== ENCOUNTER 2020-04-01 16:05 | Outpatient (CLI) | payer OTHER ==
--- NOTE | 2020-04-01 16:42 | SLEEP CARE CONSULTATION ---
Information from patient questionnaire entered by Eneida Becerra. I have reviewed and concur with the information entered by Eneida Becerra. This document represents the service I personally performed and the decisions made by , Rox Aaron ARNP. History of Present Illness Service Date and Time: 04/01/2020 1605 Initial [place] Sleepiness Scale score: 8 Additional HPI information: RHEA HOGAN returns for follow up and results of the recently performed home sleep study. I explained the pathophysiology behind obstructive sleep apnea. We then spent quite a bit of time discussing different treatment options. For mild obstructive sleep apnea, surgery and oral appliance are alternatives to nasal CPAP therapy but in moderate or severe cases, nasal CPAP is the most effective and reliable treatment. Because apnea is primarily in supine position, then positional management therapy could be effective. Methods discussed such as positioning with pillows, using a T-shirt with tennis balls in the back, and shown commercial products that have a pillow format on back to prevent supine sleep. I reviewed the impact of weight changes on sleep apnea and strongly recommended losing weight. I explained how CPAP machine works with sample devices RespirWellikos Dreamstation and Cardize [id number] and what to expect when using the machine. Using CPAP every night in order to get used to it was emphasized. AASM patient education PAP tips and Non Pap treatment pamphlets reviewed and given to patient. Patient counseled not drink alcohol less than 4 hours before bedtime as it can increase snoring and apnea. Patient was cautioned about risks of drowsy driving until sleepiness symptoms resolve. Sleep Study - Results Type of Sleep Study: Home sleep study Prior sleep studies: No Polysomnography/Home Sleep Study results: Physician Impression: The quality of the study is good. The length of the study is adequate (> 240 minutes). Please also see the tabulated and graphic data. 1. Obstructive Sleep Apnea-Hypopnea (ICD-10 G47.33), mild, with an AHI of 7.5/hr and joyce SaO2 of 84%. During the study, the patient had 22 apneas (21 obstructive, 0 central, 1 mixed) and 41 hypopneas. The longest episode lasted 86.5 seconds. The respiratory events occurred almost exclusively during supine sleep (supine AHI was 10.4 and non-supine, 3.77). 2. Hypoxemia (ICD-10 R09.02), mild, with the lowest oxygen saturation of 84 % and 10.3 minutes with SaO2 under 90%. Baseline oxygen saturation was normal (Average oxygen saturation was 94%). Allergies and Home Medications Home medication list reviewed: Yes (no changes) Review of Systems Review of systems same as previous: Yes (no changes) Physical Exam Heart Rate: 78 O2 Saturation: 97 Height: 5 ft 4 in Weight: 182 lb Body Mass Index: 31.2 BMI Classification: Obese Impression and Plan 1. Obstructive Sleep Apnea-Hypopnea Syndrome, mild, with lowest oxygen saturation of 84%. Obviously this is the cause of the patients symptoms of unrefreshed sleep, and excessive daytime sleepiness. Positive pressure therapy could benefit heart arrhythmia, depression, anxiety and learning difficulties. Patient would like to talk to her about the results and decide which therapy she is going to to with. Because the apnea is more severe supine, I instructed to avoid sleeping supine using pillow positioning. * Patient to call and let us know choice of therapy. * Attempt to lose weight. * Avoid alcohol consumption near bedtime. * Avoid supine sleep. * The patient is again cautioned about driving until sleepiness completely resolves. * Return in 1-2 months to discuss therapies if she has not chosen one sooner. Counseling Topics: Weight loss health impact Visit Type: In Office Time Spent with Patient (minutes): 20 Provider Statement: I spent 100% of the Face to Face Visit with the patient with greater than 50% spent counseling the patient and coordination of care.
== END 2020-04-01 16:06 | disposition home or self-care (01) ==
LOC: SC 16:05
PROVIDERS: ATTEND Nurse Practitioner Family
DX: G47.33 Obstructive sleep apnea (adult) (pediatric) (principal); R09.02 Hypoxemia; E66.9 Obesity, unspecified; Z68.31 Body mass index [BMI] 31.0-31.9, adult
CPT/HCPCS: 99212; 99213

== ENCOUNTER 2021-01-05 08:19 | Outpatient (CLI) | payer OTHER ==
[2021-01-05 14:50] LABS: BASOPHILS % (AUTO) 0.5 %; EOSINOPHILS # (AUTO) 0.3 10^3/uL (0.0-0.7); EOSINOPHILS % (AUTO) 5.7 %; HCT - HEMATOCRIT 44.9 % (37.0-47.0); HGB - HEMOGLOBIN 14.1 g/dL (12.0-16.0); LYMPHOCYTES # (AUTO) 1.2 10^3/uL (1.5-3.5); LYMPHOCYTES % (AUTO) 26.9 %; MEAN CORPUSCULAR HEMOGLOBIN 29.3 pg (27.0-31.0); MEAN CORPUSCULAR HGB CONC 31.4 g/dL (32.0-36.0); MEAN CORPUSCULAR VOLUME 93.3 fL (81.0-99.0); MEAN PLATELET VOLUME 11.1 fL (7.9-10.8); MONOCYTES # (AUTO) 0.3 10^3/uL (0.0-1.0); MONOCYTES % (AUTO) 7.4 %; NEUTROPHILS # (AUTO) 2.6 10^3/uL (1.5-6.6); NEUTROPHILS % (AUTO) 59.3 %; PLT - PLATELET COUNT 268 10^3/uL (130-450); RED BLOOD COUNT 4.81 10^6/uL (4.20-5.40); RED CELL DISTRIBUTION WIDTH 13.1 % (12.0-15.0); WHITE BLOOD COUNT 4.4 x10^3/uL (4.8-10.8)
[2021-01-05 15:49] LABS: ALBUMIN 3.7 g/dL (3.2-5.5); ALBUMIN/GLOBULIN RATIO 1.1 (1.0-2.2); ALKALINE PHOSPHATASE 100 IU/L (42-121); ALT ALANINE AMINOTRANSFERASE 17 IU/L (10-60); AST ASPARTATE AMINOTRANSFERASE 17 IU/L (10-42); BILIRUBIN,TOTAL 0.5 mg/dL (0.2-1.0); BUN - BLOOD UREA NITROGEN 16 mg/dL (6-20); CALCIUM 9.2 mg/dL (8.5-10.3); CARBON DIOXIDE - CO2 28 mmol/L (21-32); CHLORIDE 104 mmol/L (101-111); CHOL/HDL RATIO 4.3 (<4.4); CHOLESTEROL 182 mg/dL; CREATININE 0.7 mg/dL (0.4-1.0); GFR - MDRD 88 (>89); GLUCOSE 89 mg/dL (70-100); HDL CHOLESTEROL 42 mg/dL; LDL CHOLESTEROL,CALCULATED 120 mg/dL; LDL/HDL RATIO 2.9 (<4.4); POTASSIUM 3.8 mmol/L (3.5-5.0); SODIUM 139 mmol/L (135-145); TRIGLYCERIDES 98 mg/dL; VLDL CHOLESTEROL 20 mg/dL
[2021-01-05 15:54] LABS: THYROID STIMULATING HORMONE 1.14 uIU/mL (0.34-5.60)
== END 2021-01-05 08:20 | disposition home or self-care (01) ==
LOC: LAB.S 08:19
PROVIDERS: ATTEND Registered Nurse
DX: N95.1 Menopausal and female climacteric states (principal); F41.9 Anxiety disorder, unspecified; D64.9 Anemia, unspecified; G47.00 Insomnia, unspecified; G43.009 Migraine without aura, not intractable, without status migrainosus
CPT/HCPCS: 36415; 80053; 80061; 83721; 84443; 85025

== ENCOUNTER 2022-03-18 10:16 | Outpatient (CLI) | payer OTHER ==
[2022-03-18 14:58] LABS: BASOPHILS % (AUTO) 0.2 %; EOSINOPHILS # (AUTO) 0.1 10^3/uL (0.0-0.7); EOSINOPHILS % (AUTO) 2.9 %; HCT - HEMATOCRIT 47.4 % (37.0-47.0); HGB - HEMOGLOBIN 14.6 g/dL (12.0-16.0); LYMPHOCYTES # (AUTO) 1.5 10^3/uL (1.5-3.5); LYMPHOCYTES % (AUTO) 36.2 %; MEAN CORPUSCULAR HEMOGLOBIN 28.1 pg (27.0-31.0); MEAN CORPUSCULAR HGB CONC 30.8 g/dL (32.0-36.0); MEAN CORPUSCULAR VOLUME 91.3 fL (81.0-99.0); MEAN PLATELET VOLUME 11.2 fL (7.9-10.8); MONOCYTES # (AUTO) 0.4 10^3/uL (0.0-1.0); MONOCYTES % (AUTO) 8.6 %; NEUTROPHILS # (AUTO) 2.2 10^3/uL (1.5-6.6); NEUTROPHILS % (AUTO) 51.9 %; PLT - PLATELET COUNT 273 10^3/uL (130-450); RED BLOOD COUNT 5.19 10^6/uL (4.20-5.40); WHITE BLOOD COUNT 4.2 x10^3/uL (4.8-10.8)
[2022-03-18 15:24] LABS: THYROID STIMULATING HORMONE 1.4 uIU/mL (0.34-5.60)
[2022-03-18 15:28] LABS: ALBUMIN 4.2 g/dL (3.2-5.5); ALBUMIN/GLOBULIN RATIO 1.2 (1.0-2.2); ALKALINE PHOSPHATASE 106 IU/L (42-121); ALT ALANINE AMINOTRANSFERASE 20 IU/L (10-60); AST ASPARTATE AMINOTRANSFERASE 18 IU/L (10-42); BILIRUBIN,TOTAL 0.7 mg/dL (0.2-1.0); BUN - BLOOD UREA NITROGEN 17 mg/dL (6-20); CALCIUM 10.1 mg/dL (8.5-10.3); CARBON DIOXIDE - CO2 32 mmol/L (21-32); CHLORIDE 105 mmol/L (101-111); CHOL/HDL RATIO 5.3 (<4.4); CHOLESTEROL 226 mg/dL; CREATININE 0.8 mg/dL (0.4-1.0); GFR - MDRD 75 (>89); GLUCOSE 84 mg/dL (70-100); HDL CHOLESTEROL 43 mg/dL; LDL CHOLESTEROL,CALCULATED 159 mg/dL; LDL/HDL RATIO 3.7 (<4.4); POTASSIUM 4.4 mmol/L (3.5-5.0); SODIUM 143 mmol/L (135-145); TOTAL PROTEIN 7.8 g/dL (6.7-8.2); TRIGLYCERIDES 121 mg/dL; VLDL CHOLESTEROL 24 mg/dL
== END 2022-03-18 10:17 | disposition home or self-care (01) ==
LOC: LAB.S 10:16
PROVIDERS: ATTEND Registered Nurse
DX: Z51.81 Encounter for therapeutic drug level monitoring (principal); Z13.220 Encounter for screening for lipoid disorders; Z79.899 Other long term (current) drug therapy
CPT/HCPCS: 36415; 80053; 80061; 83721; 84443; 85025

== ENCOUNTER 2023-04-07 07:45 | Outpatient (CLI) | payer OTHER ==
[2023-04-07 15:16] LABS: BASOPHILS % (AUTO) 0.5 %; EOSINOPHILS # (AUTO) 0.2 10^3/uL (0.0-0.7); EOSINOPHILS % (AUTO) 3.9 %; HCT - HEMATOCRIT 43.2 % (37.0-47.0); HGB - HEMOGLOBIN 13.4 g/dL (12.0-16.0); LYMPHOCYTES # (AUTO) 1.4 10^3/uL (1.5-3.5); LYMPHOCYTES % (AUTO) 34.6 %; MEAN CORPUSCULAR HEMOGLOBIN 29.1 pg (27.0-31.0); MEAN CORPUSCULAR VOLUME 93.7 fL (81.0-99.0); MEAN PLATELET VOLUME 11.4 fL (7.9-10.8); MONOCYTES # (AUTO) 0.4 10^3/uL (0.0-1.0); NEUTROPHILS # (AUTO) 2.1 10^3/uL (1.5-6.6); NEUTROPHILS % (AUTO) 51.8 %; PLT - PLATELET COUNT 257 10^3/uL (130-450); RED BLOOD COUNT 4.61 10^6/uL (4.20-5.40); RED CELL DISTRIBUTION WIDTH 13.3 % (12.0-15.0); WHITE BLOOD COUNT 4.1 x10^3/uL (4.8-10.8)
[2023-04-07 16:20] LABS: ALBUMIN 4.2 g/dL (3.2-5.5); ALBUMIN/GLOBULIN RATIO 1.4 (1.0-2.2); ALKALINE PHOSPHATASE 99 IU/L (42-121); ALT ALANINE AMINOTRANSFERASE 21 IU/L (10-60); AST ASPARTATE AMINOTRANSFERASE 21 IU/L (10-42); BILIRUBIN,TOTAL 0.3 mg/dL (0.2-1.0); BUN - BLOOD UREA NITROGEN 12 mg/dL (6-20); CALCIUM 9.8 mg/dL (8.5-10.3); CARBON DIOXIDE - CO2 30 mmol/L (21-32); CHLORIDE 107 mmol/L (101-111); CHOL/HDL RATIO 5.2 (<4.4); CHOLESTEROL 203 mg/dL; CREATININE 0.8 mg/dL (0.6-1.3); GFR - MDRD 75 (>89); GLUCOSE 94 mg/dL (74-104); HDL CHOLESTEROL 39 mg/dL; LDL CHOLESTEROL,CALCULATED 112 mg/dL; LDL/HDL RATIO 2.9 (<4.4); POTASSIUM 3.9 mmol/L (3.5-4.5); SODIUM 140 mmol/L (135-145); TOTAL PROTEIN 7.2 g/dL (6.4-8.9); TRIGLYCERIDES 260 mg/dL (48-352); VLDL CHOLESTEROL 52 mg/dL
== END 2023-04-07 07:46 | disposition home or self-care (01) ==
LOC: LAB.S 07:45
PROVIDERS: ATTEND Registered Nurse
DX: Z13.220 Encounter for screening for lipoid disorders (principal); Z79.899 Other long term (current) drug therapy
CPT/HCPCS: 36415; 80053; 80061; 83721; 85025

== ENCOUNTER 2023-08-10 08:00 | Outpatient (CLI) | payer OTHER ==
--- NOTE | 2023-08-11 09:49 | XRAY Report ---
PROCEDURE: Hip w/Pelvis 2-3V RT INDICATIONS: RIGHT HIP PAIN TECHNIQUE: 2 views of the hip were acquired. COMPARISON: None. FINDINGS: Bones: No fractures or dislocations. No evidence of avascular necrosis of femoral head. Mild bilate ral hip joint osteoarthritic changes are seen. No suspicious bony lesions. Soft tissues: No suspicious soft tissue calcifications or masses. IMPRESSION: Symmetric appearing mild bilateral hip joint osteoarthritis. No pelvic or hip fracture. No evidence o f avascular necrosis. Reviewed by: Cheng Da Silva MD on 08/11/2023 9:48 AM PDT Approved by: Cheng Da Silva MD on 08/11/2023 9:48 AM PDT Station ID: [id number]
== END 2023-08-10 23:59 | disposition home or self-care (01) ==
LOC: DI.S 08:00
PROVIDERS: ATTEND Emergency Medicine
DX: M16.0 Bilateral primary osteoarthritis of hip (principal)